=== PATIENT | female | born 1960 | race Caucasian/White ===

== ENCOUNTER 2018-03-24 12:29 | Emergency (ER) | payer OTHER ==
[~2018-03-24] VITALS: Ht 172.7 cm; Wt 136.1 kg
[2018-03-24 12:44] VITALS: Ht 172.7 cm; Wt 136.1 kg
[2018-03-24 14:21] LABS: CALCIUM 9.1 mg/dL (8.5-10.1); CARBON DIOXIDE 27.1 mmol/L (21-32); CHLORIDE SERUM 101 mmol/L (98-107); CREATININE SERUM 0.8 mg/dL (0.6-1.0); GFR1 > 60 mL/min; GLUCOSE SERUM 178 mg/dL (74-106); POTASSIUM SERUM 4.3 mmol/L (3.5-5.1); SODIUM SERUM 138 mmol/L (136-145)
[2018-03-24 14:26] LABS: ALKALINE PHOSPHATASE 202 U/L (46-116); ALT/SGPT 31 U/L (14-59); AST/SGOT 22 U/L (15-37); BILIRUBIN TOTAL 0.3 mg/dL (0.20-1.00); TOTAL PROTEIN, SERUM 7.3 g/dL (6.4-8.2)
[2018-03-24 14:31] LABS: PLATELET COUNT 194 x10^3mcL (130-400)
[2018-03-24 14:46] LABS: RED CELL DISTRIBUTION WIDTH 16.6 % (11.5-14.5)
[2018-03-24 15:28] VITALS: BP 154/91
[2018-03-24 15:53] LABS: ATYPICAL LYMPH 20 %; BAND NEUTROPHIL 5 % (0-10); BASOPHIL 0 % (0-2); BLAST 10 % (0); MONOCYTE 2 % (0-7); MYELOCYTE 5 % (0-2); SEGMENTED NEUTROPHILS 8 % (37-75); rbc morphology (normal/abnorm) ABNORMAL (NORMAL)
[2018-03-24 15:54] LABS: PLATELET MORPHOLOGY PLATELETS NORMAL
== END 2018-03-24 15:28 | disposition home or self-care (01) ==
LOC: ED 12:29
PROVIDERS: Emergency Medicine
DX: S80.01XA Contusion of right knee, initial encounter (principal); I50.9 Heart failure, unspecified; I11.9 Hypertensive heart disease without heart failure; E11.9 Type 2 diabetes mellitus without complications; I48.91 Unspecified atrial fibrillation; Z79.01 Long term (current) use of anticoagulants; W06.XXXA Fall from bed, initial encounter; Y93.89 Activity, other specified; Y92.89 Other specified places as the place of occurrence of the external cause; Y99.8 Other external cause status
CPT/HCPCS: 85060; J1885; Q0092

== ENCOUNTER 2019-02-22 10:10 | Emergency (ER) | payer OTHER ==
[~2019-02-22] VITALS: Ht 172.7 cm; Wt 138.3 kg
[2019-02-22 13:15] VITALS: BP 152/81
== END 2019-02-22 13:15 | disposition home or self-care (01) ==
LOC: ED 10:10
DX: S13.9XXA Sprain of joints and ligaments of unspecified parts of neck, initial encounter (principal); S46.911A Strain of unspecified muscle, fascia and tendon at shoulder and upper arm level, right arm, initial encounter; S63.501A Unspecified sprain of right wrist, initial encounter; S00.81XA Abrasion of other part of head, initial encounter; S09.8XXA Other specified injuries of head, initial encounter; E11.9 Type 2 diabetes mellitus without complications; S23.3XXA Sprain of ligaments of thoracic spine, initial encounter; I50.9 Heart failure, unspecified; I11.0 Hypertensive heart disease with heart failure; I48.91 Unspecified atrial fibrillation; Z86.2 Personal history of diseases of the blood and blood-forming organs and certain disorders involving the immune mechanism; W18.30XA Fall on same level, unspecified, initial encounter; W54.0XXA Bitten by dog, initial encounter; Y93.89 Activity, other specified; Y92.89 Other specified places as the place of occurrence of the external cause; Y99.8 Other external cause status

== ENCOUNTER 2019-03-25 12:10 | Emergency (ER) | payer OTHER ==
[~2019-03-25] VITALS: Ht 172.7 cm; Wt 139.3 kg
[2019-03-25 12:22] VITALS: BP 208/76; Ht 172.7 cm; Wt 139.3 kg
== END 2019-03-25 15:31 | disposition home or self-care (01) ==
LOC: ED 12:10
DX: S00.81XA Abrasion of other part of head, initial encounter (principal); S64.91XA Injury of unspecified nerve at wrist and hand level of right arm, initial encounter; I11.0 Hypertensive heart disease with heart failure; I50.9 Heart failure, unspecified; I48.91 Unspecified atrial fibrillation; W18.30XA Fall on same level, unspecified, initial encounter; Y93.89 Activity, other specified; Y92.89 Other specified places as the place of occurrence of the external cause; Y99.8 Other external cause status